=== PATIENT | male | born 1990 | race Caucasian/White ===

== ENCOUNTER 2018-09-14 00:36 | Emergency (ER) | payer SELFPAY ==
[~2018-09-14] VITALS: Ht 167.6 cm; Wt 72.0 kg
[2018-09-14 01:30] LABS: HEMOGLOBIN. 14.8 g/dL (14.0-18.0); MEAN CORPUSCULAR HEMOGLOBIN 29.6 pg (28.0-32.0); MEAN CORPUSCULAR VOLUME 86.1 fL (80.0-94.0); MEAN PLATELET VOLUME 8.9 fl (7.4-10.4); PLATELET 218 x1000/uL (130-400); RED BLOOD CELL COUNT 4.99 mill/uL (4.7-6.1); RED CELL DISTRIBUTION WIDTH 14.5 % (11.6-14.6)
[2018-09-14 01:35] LABS: CHLORIDE 104 mEq/L (98-107)
[2018-09-14 01:39] LABS: ETHANOL BLOOD < 10 mg/dL
[2018-09-14 01:50] LABS: PLATELET ESTIMATE NORMAL
[2018-09-14 06:03] VITALS: BP 119/64
== END 2018-09-14 06:10 | disposition home or self-care (01) ==
LOC: ER 00:36
DX: T40.601A Poisoning by unspecified narcotics, accidental (unintentional), initial encounter (principal); F11.10 Opioid abuse, uncomplicated; F17.210 Nicotine dependence, cigarettes, uncomplicated; Y92.89 Other specified places as the place of occurrence of the external cause
CPT/HCPCS: 36415; 70450; 80048; 80320; 85025; 99284; 99406; A4217; Z7610; G0480